=== PATIENT | male | born 1960 | race Caucasian/White ===

== ENCOUNTER 2021-02-09 13:24 | Inpatient (IN) | payer SELFPAY ==
[~2021-02-09] VITALS: Ht 172.7 cm; Wt 66.7 kg
[2021-02-09] MEDS ORDERED: LISINOPRIL (13:27)
[2021-02-09] MEDS ORDERED: ACETAMINOPHEN 325MG TABLET PO STA (13:56)
[2021-02-09] MEDS ORDERED: SODIUM CHLORIDE 0.9% 1,000 ML IV ONE (14:00)
[2021-02-09 14:30] LABS: HEMATOCRIT. 32.4 % (42.0-52.0); HEMOGLOBIN. 10.8 g/dL (14.0-18.0); MEAN CORPUSCULAR HEMOGLOBIN 27.6 pg (28.0-32.0); MEAN CORPUSCULAR VOLUME 82.4 fL (80.0-94.0); MEAN PLATELET VOLUME 11.9 fl (7.4-10.4); PLATELET 176 x1000/uL (130-400); RED BLOOD CELL COUNT 3.94 mill/uL (4.7-6.1); RED CELL DISTRIBUTION WIDTH 15.7 % (11.6-14.6)
[2021-02-09 14:39] LABS: CHLORIDE 109 mEq/L (98-107)
[2021-02-09 15:54] LABS: PLATELET ESTIMATE NORMAL
[2021-02-09 16:10] LABS: CLARITY URINE CLEAR (CLEAR); COLOR URINE DARK YELLOW (YELLOW); KETONES URINE NEGATIVE (NEGATIVE); LEUKOCYTE ESTERASE URINE NEGATIVE (NEGATIVE); NITRITE URINE NEGATIVE (NEGATIVE); OCCULT BLOOD URINE NEGATIVE (NEGATIVE); PH URINE 6.5 (4.5-8.0); PROTEIN URINE 1+ (NEGATIVE); SPECIFIC GRAVITY URINE 1.014 (1.005-1.030)
[2021-02-09] MEDS ORDERED: CLONIDINE 0.1MG TABLET PO PRN (20:00)
[2021-02-09] MEDS ORDERED: ACETAMINOPHEN 325MG TABLET PO PRN (20:00)
[2021-02-09] MEDS ORDERED: HYDRALAZINE 20MG/ML VIAL IV PRN (20:00)
[2021-02-09] MEDS ORDERED: MAGNESIUM/ALUMINUM HYDROXIDE/SIMETHICONE 30ML UDC PO PRN (20:00)
[2021-02-09] MEDS ORDERED: IPRATROPIUM/ALBUTEROL 0.5-3(2.5)MG/3ML NEB HHN PRN (20:00)
[2021-02-09] MEDS ORDERED: ONDANSETRON HCL 4MG/2ML INJ IV PRN (20:00)
[2021-02-09] MEDS ORDERED: DIPHENHYDRAMINE 50MG/ML VIAL IV PRN (20:00)
[2021-02-09] MEDS ORDERED: GUAIFENESIN 200MG/10ML SUGAR FREE UDC PO PRN (20:00)
[2021-02-09] MEDS ORDERED: DOCUSATE SODIUM 100MG CAPSULE PO PRN (20:00)
[2021-02-09] MEDS ORDERED: LORAZEPAM 2MG/ML CPJ IV PRN (20:00)
[2021-02-09] MEDS: ENOXAPARIN 40MG/0.4ML SYR SUBCUT SCH (20:11)
[2021-02-09] MEDS: SODIUM CHLORIDE 0.9% INJ 3ML FLUSH IVF SCH (22:00)
[2021-02-09 22:57] LABS: CREATINE KINASE 264 IU/L (39-308)
[2021-02-09 22:58] LABS: CREATINE KINASE MB FRACTION 1.1 ng/mL (0.5-3.6)
[2021-02-09 23:10] VITALS: BP 163/96
[2021-02-10] VITALS (7 sets, daily range): BP systolic 119–148; BP diastolic 67–102
[2021-02-10] MEDS: MORPHINE SULFATE 2 MG/ML CPJ (NOT FOR IM USE) IV PRN ×3 (01:24→18:13)
[2021-02-10] MEDS ORDERED: BICT1TAB PO (01:32)
[2021-02-10] MEDS: SODIUM CHLORIDE 0.9% INJ 3ML FLUSH IVF SCH ×3 (06:00→22:00)
[2021-02-10 07:19] LABS: HEMOGLOBIN. 11.4 g/dL (14.0-18.0); MEAN CORPUSCULAR HEMOGLOBIN 27.4 pg (28.0-32.0); MEAN CORPUSCULAR VOLUME 81.7 fL (80.0-94.0); MEAN PLATELET VOLUME 12.1 fl (7.4-10.4); PLATELET 180 x1000/uL (130-400); RED BLOOD CELL COUNT 4.15 mill/uL (4.7-6.1); RED CELL DISTRIBUTION WIDTH 15.6 % (11.6-14.6)
[2021-02-10 07:36] LABS: CHLORIDE 108 mEq/L (98-107)
[2021-02-10 07:48] LABS: CREATINE KINASE 160 IU/L (39-308)
[2021-02-10 07:50] LABS: CREATINE KINASE MB FRACTION 1.3 ng/mL (0.5-3.6)
[2021-02-10 09:49] LABS: *BARBITURATES SCREEN URINE NEGATIVE (NEGATIVE); *COCAINE SCREEN URINE NEGATIVE (NEGATIVE)
[2021-02-10 09:50] LABS: *AMPHETAMINES SCREEN URINE NEGATIVE (NEGATIVE); *BENZODIAZEPINES SCREEN URINE NEGATIVE (NEGATIVE); CANNABINOID URINE SCREEN NEGATIVE (NEGATIVE); METHADONE URINE SCREEN NEGATIVE (NEGATIVE); OPIATES URINE SCREEN NEGATIVE (NEGATIVE); PHENCYCLIDINE URINE SCREEN NEGATIVE (NEGATIVE)
[2021-02-10] MEDS: HYDROCODONE/ACETAMINOPHEN 5/325MG TABLET PO PRN ×2 (10:00→20:52)
[2021-02-10 11:16] LABS: T4 FREE 1.29 ng/dL (0.76-1.46)
[2021-02-10] MEDS ORDERED: NALOXONE HCL 0.4MG/ML VIAL IV PRN (16:30)
[2021-02-10 17:50] LABS: PLATELET ESTIMATE NORMAL
[2021-02-10] MEDS: ENOXAPARIN 40MG/0.4ML SYR SUBCUT SCH (20:52)
[2021-02-11] VITALS (8 sets, daily range): BP systolic 113–148; BP diastolic 61–88
[2021-02-11] MEDS: MORPHINE SULFATE 2 MG/ML CPJ (NOT FOR IM USE) IV PRN ×3 (00:13→14:06)
[2021-02-11] MEDS: SODIUM CHLORIDE 0.9% INJ 3ML FLUSH IVF SCH ×3 (06:00→22:00)
[2021-02-11] MEDS: HYDROCODONE/ACETAMINOPHEN 5/325MG TABLET PO PRN (17:46)
[2021-02-11] MEDS: ENOXAPARIN 40MG/0.4ML SYR SUBCUT SCH (20:47)
[2021-02-12] VITALS: BP 139/83
[2021-02-12] MEDS: MORPHINE SULFATE 2 MG/ML CPJ (NOT FOR IM USE) IV PRN ×2 (03:08→09:12)
[2021-02-12 03:56] VITALS: BP 111/68
[2021-02-12] MEDS: SODIUM CHLORIDE 0.9% INJ 3ML FLUSH IVF SCH ×3 (06:00→20:34)
[2021-02-12 08:00] VITALS: BP 148/82
[2021-02-12 12:00] VITALS: BP 129/84
[2021-02-12 16:00] VITALS: BP 150/76
[2021-02-12 20:00] VITALS: BP 122/74
[2021-02-12] MEDS: ENOXAPARIN 40MG/0.4ML SYR SUBCUT SCH (20:34)
[2021-02-13] VITALS (8 sets, daily range): BP systolic 125–157; BP diastolic 64–86
[2021-02-13] MEDS: SODIUM CHLORIDE 0.9% INJ 3ML FLUSH IVF SCH ×3 (05:15→21:23)
[2021-02-13] MEDS: MORPHINE SULFATE 2 MG/ML CPJ (NOT FOR IM USE) IV PRN ×2 (08:54→16:47)
[2021-02-13] MEDS: ENOXAPARIN 40MG/0.4ML SYR SUBCUT SCH (21:19)
[2021-02-14] VITALS (9 sets, daily range): BP systolic 112–159; BP diastolic 62–99
[2021-02-14] MEDS: SODIUM CHLORIDE 0.9% INJ 3ML FLUSH IVF SCH ×3 (06:00→21:04)
[2021-02-14] MEDS: MORPHINE SULFATE 2 MG/ML CPJ (NOT FOR IM USE) IV PRN ×2 (08:21→15:45)
[2021-02-14] MEDS: HYDROCODONE/ACETAMINOPHEN 5/325MG TABLET PO PRN (12:51)
[2021-02-14] MEDS: ENOXAPARIN 40MG/0.4ML SYR SUBCUT SCH (21:04)
[2021-02-15] VITALS (8 sets, daily range): BP systolic 101–143; BP diastolic 57–80
[2021-02-15] MEDS: SODIUM CHLORIDE 0.9% INJ 3ML FLUSH IVF SCH ×3 (06:17→21:05)
[2021-02-15] MEDS ORDERED: MORPHINE SULFATE 2 MG/ML CPJ (NOT FOR IM USE) IV PRN (09:00)
[2021-02-15] MEDS: HYDROCODONE/ACETAMINOPHEN 5/325MG TABLET PO PRN (17:29)
[2021-02-15] MEDS: ENOXAPARIN 40MG/0.4ML SYR SUBCUT SCH (21:04)
[2021-02-16 00:12] VITALS: BP 105/59
[2021-02-16] MEDS: HYDROCODONE/ACETAMINOPHEN 5/325MG TABLET PO PRN ×2 (03:47→14:46)
[2021-02-16 04:00] VITALS: BP 141/81
[2021-02-16] MEDS: SODIUM CHLORIDE 0.9% INJ 3ML FLUSH IVF SCH ×2 (05:33→13:50)
[2021-02-16 07:17] LABS: HEMOGLOBIN. 11.3 g/dL (14.0-18.0); MEAN CORPUSCULAR HEMOGLOBIN 27.4 pg (28.0-32.0); MEAN CORPUSCULAR VOLUME 82.4 fL (80.0-94.0); MEAN PLATELET VOLUME 11.9 fl (7.4-10.4); PLATELET 136 x1000/uL (130-400); RED BLOOD CELL COUNT 4.12 mill/uL (4.7-6.1); RED CELL DISTRIBUTION WIDTH 15.4 % (11.6-14.6)
[2021-02-16 07:21] LABS: CHLORIDE 104 mEq/L (98-107)
[2021-02-16 08:00] VITALS: BP 131/73
[2021-02-16 10:32] VITALS: BP_SYST 126; BP_SYST 134; BP_DIAS 66; BP_DIAS 72
[2021-02-16 12:00] VITALS: BP 126/66
[2021-02-16 15:07] LABS: PLATELET ESTIMATE NORMAL
[2021-02-16 16:00] VITALS: BP 126/78
== END 2021-02-16 17:22 | disposition home or self-care (01) | DRG 204 ==
LOC: ER 13:38 → 6WST 17:19 → EDBEDREQ 17:26 → EDBEDREQTM 17:26 → ENRESERV 22:39
PROVIDERS: ADMIT Internal Medicine; ATTEND Internal Medicine
PROC: 4A10X4Z Monitoring of Central Nervous Electrical Activity, External Approach (ICD-10-PCS; principal; 2021-02-12)
PROC: 0JBG0ZZ Excision of Right Lower Arm Subcutaneous Tissue and Fascia, Open Approach (ICD-10-PCS; 2021-02-12)
DX: R55 Syncope and collapse (principal); E44.1 Mild protein-calorie malnutrition; I11.9 Hypertensive heart disease without heart failure; S51.011A Laceration without foreign body of right elbow, initial encounter; D64.9 Anemia, unspecified; G40.909 Epilepsy, unspecified, not intractable, without status epilepticus; E80.6 Other disorders of bilirubin metabolism; S05.11XA Contusion of eyeball and orbital tissues, right eye, initial encounter; R74.01 Elevation of levels of liver transaminase levels; I65.23 Occlusion and stenosis of bilateral carotid arteries; Z20.822 Contact with and (suspected) exposure to COVID-19; M47.816 Spondylosis without myelopathy or radiculopathy, lumbar region; W18.39XA Other fall on same level, initial encounter; Y93.89 Activity, other specified; Y92.89 Other specified places as the place of occurrence of the external cause; Y99.8 Other external cause status; Z79.899 Other long term (current) drug therapy; Z68.22 Body mass index [BMI] 22.0-22.9, adult
CPT/HCPCS: 36415; 70486; 71045; 72100; 72170; 76700; 78582; 80048; 80053; 80061; 80305; 81003; 82040; 82550; 82553; 83036; 83880; 84134; 84439; 84443; 84484; 85025; 85379; 93005; 93306; 93970; 95816; 99285; A9558; J1650; J2270; J7030